=== PATIENT | male | born 1945 | race Caucasian/White ===

== ENCOUNTER 2016-09-12 00:26 | Emergency (ER) | payer OTHER ==
[~2016-09-12] VITALS: Ht 182.9 cm; Wt 76.2 kg
[~2016-09-12 00:26] MED LIST: AMIO200T42 PO; ATOR10TA9 PO; CALC1CAP8 PO; CHOL100011 PO; CHOL10003 PO; DILT240C77 PO; HYDR12.53 PO; HYDR25TA6 PO; LEVO75TA5 PO; NIAC500C3 PO; SILD100T PO; TAMS-11 PO; TRAM50TA2 PO; [UNRECOGNIZED DRUG - OTHER] EACHEYE
[2016-09-12] MEDS ORDERED: SODIUM CHLORIDE 0.9% 1,000 ML IV ONE (00:42)
[2016-09-12 01:15] LABS: ASPARTATE AMINO TRANSFERASE 29 U/L (15-37); BLOOD UREA NITROGEN 15 mg/dL (7-18)
[2016-09-12] MEDS ORDERED: POTASSIUM CHLORIDE 20 MEQ TAB.ER.PRT PO ONE (02:30)
[2016-09-12] MEDS ORDERED: POTASSIUM CHLORIDE 20 MEQ TAB.ER.PRT ONE (02:44)
[2016-09-12] MEDS ORDERED: LEVOFLOXACIN/PMX 750MG/150ML 150 ML ONE (02:44)
[2016-09-12] MEDS ORDERED: LEVOFLOXACIN/PMX 750MG/150ML 150 ML IVPB ONE (03:00)
[2016-09-12] MEDS ORDERED: SODIUM CHLORIDE 0.9% 1,000ML IVBOLUS ONE (03:00)
[2016-09-12 03:05] VITALS: BP 140/89
== END 2016-09-12 04:17 | disposition short-term general hospital (02) ==
LOC: ED 01:01
DX: G30.1 Alzheimer's disease with late onset (principal); F02.81 Dementia in other diseases classified elsewhere, unspecified severity, with behavioral disturbance; J15.9 Unspecified bacterial pneumonia; E87.6 Hypokalemia; R79.89 Other specified abnormal findings of blood chemistry
CPT/HCPCS: 36415; 70450; 71010; 80053; 80307; 81003; 82140; 85025; 87040; 87150; 93005; 96361; 96365; 99285; J1956; J7030

== ENCOUNTER → 2020-09-20 | Outpatient (CLI) | payer OTHER ==
[~2020-09-20] MED LIST changes: +HYDR12.517 PO; -HYDR12.53 PO
== END | disposition home or self-care (01) ==
LOC: CFH 08:39
PROVIDERS: ATTEND Orthopaedic Surgery
DX: J98.4 Other disorders of lung (principal); J44.9 Chronic obstructive pulmonary disease, unspecified
CPT/HCPCS: 71046